=== PATIENT | female | born 1995 | race African-American/Black ===

== ENCOUNTER 2017-04-21 07:25 | Emergency (ER) | payer SELFPAY ==
[~2017-04-21] VITALS: Ht 165.1 cm; Wt 50.0 kg
[~2017-04-21 07:25] MED LIST: POLY10O EACH EYE
[2017-04-21 07:27] VITALS: BP 112/60; PULSE 70; RESP 14; TEMP 98.1; O2SAT 100
[2017-04-21] MEDS ORDERED: TRIA.1%T TOPICAL (08:17)
--- NOTE | 2017-04-21 08:18 | PD ---
HPI . 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 She states that for someone sanitary napkin at work because she started her period. She subsequently developed irritation. She denies any other symptoms. She states that this is her normal menstrual cycle. She denies any pelvic pain. She denies any dyspareunia or discharge. She denies any urinary tract symptoms. She has not tried anything for the rash. She reports no exacerbating or relieving factors. She describes her discomfort as a hot, burning sensation which she rates as 5/10. PFSH Past Medical History ADHD: No Cancer: No Cardiovascular Problems: No Developmental Delay: No Diabetes: No Immunizations Current: Yes Migraines: No Seizures: No Thyroid Disease: No Ulcer: No ?: Not : 0 Past Surgical History Other Surgery: No Social History Alcohol Use: No Tobacco Use: No Substance Use: No Allergies-Medications (Allergen,Severity, Reaction): Coded Allergies: [place] (Verified Allergy, Severe, MOUTH BREAKS OUT, HIVES, 10/06/16) Reported Meds & Prescriptions Reported Meds & Active Scripts Active Triamcinolone Topical (Triamcinolone Acetonide) 0.1% Cream 1 Applic TOPICAL BID 10 Days Polytrim Opth Drops (Polymyxin/Trimethoprim Sulfate) 10,000-0.1 Unit/Ml-% Soln 1 Drop EACH EYE Q6HR 7 Days Review of Systems Except as stated in HPI: all other systems reviewed are Neg General / Constitutional: No: Fever, Chills Gastrointestinal: No: Nausea, Vomiting, Diarrhea, Abdominal Pain Genitourinary: Positive: Vaginal Bleeding, No: Urgency, Frequency, Dysuria, Pelvic Pain, Dyspareunia, Discharge, Menorrhagia, Metorrhagia Physical Exam Narrative GENERAL: Awake and alert and in no acute distress. SKIN: Warm and dry. HEAD: Atraumatic. Normocephalic. EYES: Pupils equal and round. NECK: Trachea midline. CARDIOVASCULAR: Regular rate and rhythm. RESPIRATORY: No accessory muscle use. : She has a raised, scaly rash to the external genitalia. Speculum and bimanual exams are benign. MUSCULOSKELETAL: No obvious deformities. No edema. NEUROLOGICAL: Awake and alert. No obvious cranial nerve deficits. Motor grossly within normal limits. Normal speech. PSYCHIATRIC: Appropriate mood and affect; insight and judgment normal. Data Data Last Documented VS Vital Signs Date Time Temp Pulse Resp B/P Pulse Ox O2 Delivery O2 Flow Rate FiO2 04/21/17 07:27 98.1 70 14 112/60 100 Orders Gc And Chlamydia Pcr (04/21/17 07:33) Wet Prep Profile (04/21/17 07:33) Urinalysis - C+S If Indicated (04/21/17 07:33) Ed Urine Pregnancytest Poc (04/21/17 07:33) Urine Culture (04/21/17 07:50) Ceftriaxone Inj (Rocephin Inj) (04/21/17 08:45) Lidocaine 1% Inj (50 Ml) (Xylocaine 1% I (04/21/17 08:45) Labs Laboratory Tests Test 04/21/17 04/21/17 07:50 08:00 Urine Color YELLOW Urine Turbidity HAZY Urine pH 5.5 Urine Specific Todd 1.009 Urine Protein NEG mg/dL Urine Glucose (UA) NEG mg/dL Urine Ketones NEG mg/dL Urine Occult Blood LARGE Urine Nitrite NEG Urine Bilirubin NEG Urine Urobilinogen LESS THAN 2.0 MG/DL Urine Leukocyte Esterase LARGE Urine RBC 42 /hpf Urine WBC 12 /hpf Urine WBC Clumps RARE Urine Squamous Epithelial 7 /hpf Cells Urine Bacteria FEW /hpf Urine Mucus FEW /lpf Urine Trichomonas OCC Microscopic Urinalysis Comment CULTURE INDICATED Clue Cells (Wet Prep) PRESENT Vaginal Trichomonas (Wet Prep) PRESENT Vaginal Yeast (Wet Prep) NONE SEEN MDM Medical Decision Making Medical Screen Exam Complete: Yes Emergency Medical Condition: Yes Differential Diagnosis The differential diagnosis of the skin rash includes but is not limited to allergic urticaria, scabies, insect bites, contact dermatitis Narrative Course Patient presents with irritation of the external genitalia. On exam, she has a contact dermatitis to the external genitalia. She will be treated with triamcinolone. This patient's urinalysis shows 12 white cells, white blood cell clumps, few bacteria, large leukocyte esterase. Her wet prep shows both clue cells and Trichomonas. Given these findings, the patient will be treated for all STDs. Diagnosis Primary Impression: Contact dermatitis Qualified Code: L24.89 - Irritant contact dermatitis due to other agents Additional Impressions: Trichomonas vaginitis Bacterial vaginosis Patient Instructions: Bacterial Vaginosis (DC), Contact Dermatitis (DC), General Instructions, Trichomoniasis (DC) Additional Instructions: Use the triamcinolone two-year external genitalia twice daily. I would also suggest using a lotion. Med/Other Pt SpecificInfo: Prescription(s) given Scripts Metronidazole (Flagyl)500 Mg [id number] Mg PO BID 7 Days Ref 0 Prov:Mariel Espinoza MD 04/21/17 Doxycycline Hyclate 100 Mg [id number] Mg PO BID #20 CAP Ref 0 Prov:Mariel Espinoza MD 04/21/17 Triamcinolone Topical 0.1% Cream1 Applic TOPICAL BID 10 Days Ref 0 Prov:Mariel Espinoza MD 04/21/17 Disposition: 01 DISCHARGE HOME Condition: Stable Mariel Espinoza MD April 21, 2017 08:18
[2017-04-21 08:25] LABS: BACTERIA, URINE FEW /hpf; BLOOD, URINE LARGE (NEG); COMMENT (UR) CULTURE INDICATED; CULTURE IF INDICATED CULTURE INDICATED; GLUCOSE,URINE NEG (NEG); KETONE, URINE NEG (NEG); MUCUS URINE FEW /lpf (OCC); NITRITE,URINE NEG (NEG); PH, URINE 5.5 (5.0-8.5); SQUAMOUS EPITHELIAL CELL URINE 7 /hpf (0-5); URINE COLOR YELLOW (YELLW/STRAW)
[2017-04-21] MEDS ORDERED: DOXY100C PO (08:34)
[2017-04-21] MEDS ORDERED: METR-1 PO (08:34)
[2017-04-21] MEDS ORDERED: cefTRIAXone 250 MG VIAL IM ONE (08:45)
[2017-04-21] MEDS ORDERED: LIDOCAINE HCL 1% 50 ML VIAL XX ONE (08:45)
[2017-04-21 13:13] LABS: CHLAMYDIA PCR NOT DETECTED (NOT DETECT); NEISSERIA PCR NOT DETECTED (NOT DETECT)
== END 2017-04-21 09:34 | disposition home or self-care (01) ==
LOC: NEPE 07:25
DX: L24.89 Irritant contact dermatitis due to other agents (principal); A59.01 Trichomonal vulvovaginitis; N76.0 Acute vaginitis; B96.89 Other specified bacterial agents as the cause of diseases classified elsewhere
CPT/HCPCS: 81001; 84703; 87086; 87210; 87491; 87591; 96372; 99284; J0696

== ENCOUNTER 2018-01-23 11:33 | Emergency (ER) | payer SELFPAY ==
[~2018-01-23] VITALS: Ht 162.6 cm; Wt 47.5 kg
[~2018-01-23 11:33] MED LIST changes: +DOXY100C PO; +METR-1 PO; +TRIA.1%T TOPICAL
[2018-01-23 11:39] VITALS: BP 112/70; PULSE 71; RESP 18; TEMP 97.8; O2SAT 100
[2018-01-23 12:48] LABS: AUTOMATED NEUTROPHIL # 1.4 TH/MM3 (1.8-7.7); BASOPHIL % 1.2 % (0.0-2.0); EOSINOPHIL # 0.1 TH/MM3 (0-0.4); EOSINOPHIL % 1.6 % (0.0-4.0); HEMATOCRIT 42.7 % (35.0-46.0); HEMOGLOBIN 14.7 GM/DL (11.6-15.3); LYMPH % 46.5 % (9.0-44.0); LYMPHOCYTE # 1.5 TH/MM3 (1.0-4.8); MEAN CELL VOLUME 86.5 FL (80.0-100.0); MEAN CORPUSCULAR HEMOGLOBIN 29.9 PG (27.0-34.0); MEAN CORPUSCULAR HGB CONC 34.5 % (32.0-36.0); MEAN PLATELET VOLUME 8.2 FL (7.0-11.0); MONO % 5.8 % (0.0-8.0); MONOCYTE # 0.2 TH/MM3 (0-0.9); NEUT % 44.9 % (16.0-70.0); PLATELET COUNT 267 TH/MM3 (150-450); RED BLOOD COUNT 4.93 MIL/MM3 (4.00-5.30); WHITE BLOOD COUNT 3.2 TH/MM3 (4.0-11.0)
[2018-01-23 13:04] LABS: BILIRUBIN, URINE NEG (NEG); BLOOD, URINE NEG (NEG); GLUCOSE,URINE NEG (NEG); KETONE, URINE NEG (NEG); MUCUS URINE MANY /lpf (OCC); NITRITE,URINE NEG (NEG); SQUAMOUS EPITHELIAL CELL URINE 12 /hpf (0-5); URINE COLOR YELLOW (YELLW/STRAW); URINE LEUKOCYTE ESTERASE TRACE (NEG)
--- NOTE | 2018-01-23 13:13 | PD ---
HPI Chief Complaint: GI Complaint Time Seen by Provider: 13:13 Travel History International Travel<30 days: No Contact w/Intl Traveler<30days: No Traveled to known affect area: No History of Present Illness HPI 22-year-old -[place] female presents emergency department with several day history of GI symptoms. Patient states Saturday night she developed diarrhea , which she blamed on some chicken that she ate. She states he then felt feverish and unwell through Saturday. She states she felt improved Saturday, a chicken again, and then developed nausea and vomiting. Patient continues to have nausea and vomiting this morning with diarrhea. She states the last time she had nausea and vomiting was around 11 AM this morning. She states since arriving here in the emergency department and waiting room she has felt improved. Currently patient does not feel nauseous, and has no abdominal pain. Labs and urinalysis and urine were performed in triage. She is allergic to strawberries. PFSH Past Medical History ADHD: No Cancer: No Cardiovascular Problems: No Developmental Delay: No Diabetes: No Diminished Hearing: No Immunizations Current: Yes Migraines: No Seizures: No Thyroid Disease: No Ulcer: No : 0 Past Surgical History Other Surgery: No Social History Alcohol Use: No Tobacco Use: No Substance Use: No Allergies-Medications (Allergen,Severity, Reaction): Coded Allergies: strawberry (Unverified Allergy, Severe, MOUTH BREAKS OUT, HIVES, 01/23/18) Reported Meds & Prescriptions Reported Meds & Active Scripts Active Flagyl (Metronidazole) 500 Mg Tab 500 Mg PO BID 7 Days Flagyl (Metronidazole) 500 Mg Tab 500 Mg PO BID 7 Days Doxycycline Hyclate 100 Mg Cap 100 Mg PO BID Triamcinolone Topical (Triamcinolone Acetonide) 0.1% Cream 1 Applic TOPICAL BID 10 Days Polytrim Opth Drops (Polymyxin/Trimethoprim Sulfate) 10,000-0.1 Unit/Ml-% Soln 1 Drop EACH EYE Q6HR 7 Days Review of Systems Except as stated in HPI: all other systems reviewed are Neg General / Constitutional: Positive: Fever (2 days ago.), No: Chills Eyes: No: Visual changes HENT: No: Headaches Cardiovascular: No: Chest Pain or Discomfort Respiratory: No: Shortness of Breath Gastrointestinal: Positive: Nausea, Vomiting, Diarrhea, Abdominal Pain (See history of present illness.) Genitourinary: No: Dysuria Musculoskeletal: No: Pain Skin: No Rash Neurologic: No: Weakness Psychiatric: No: Depression Endocrine: No: Polydipsia Hematologic/Lymphatic: No: Easy Bruising Physical Exam Narrative GENERAL: Patient appears in no acute distress. She is using her phone during my exam. SKIN: Warm and dry. Normal color. Normal turgor. No diaphoresis. HEAD: Atraumatic. Normocephalic. EYES: Pupils equal and round. No scleral icterus. No injection or drainage. ENT: No nasal bleeding or discharge. Mucous membranes pink and moist. Pharynx is clear. Airways patent. NECK: Trachea midline. Supple. CARDIOVASCULAR: Regular rate and rhythm. RESPIRATORY: No accessory muscle use. Clear to auscultation. Breath sounds equal bilaterally. GASTROINTESTINAL: Abdomen soft, non-tender, nondistended. Hepatic and splenic margins not palpable. MUSCULOSKELETAL: Extremities without clubbing, cyanosis, or edema. No obvious deformities. NEUROLOGICAL: Awake and alert. No obvious cranial nerve deficits. Motor grossly within normal limits. Five out of 5 muscle strength in the arms and legs. Normal speech. PSYCHIATRIC: Appropriate mood and affect; insight and judgment normal. Data Data Last Documented VS Vital Signs Date Time Temp Pulse Resp B/P (MAP) Pulse Ox O2 Delivery O2 Flow Rate FiO2 01/23/18 11:41 18 01/23/18 11:39 97.8 71 112/70 (84) 100 Orders Orders Complete Blood Count With Diff (01/23/18 11:49) Comprehensive Metabolic Panel (01/23/18 11:49) Urinalysis - C+S If Indicated (01/23/18 11:49) Ed Urine Pregnancytest Poc (01/23/18 11:49) Labs Laboratory Tests Test 01/23/18 12:07 White Blood Count 3.2 TH/MM3 Red Blood Count 4.93 MIL/MM3 Hemoglobin 14.7 GM/DL Hematocrit 42.7 % Mean Corpuscular Volume 86.5 FL Mean Corpuscular Hemoglobin 29.9 PG Mean Corpuscular Hemoglobin Concent 34.5 % Red Cell Distribution Width 13.0 % Platelet Count 267 TH/MM3 Mean Platelet Volume 8.2 FL Neutrophils (%) (Auto) 44.9 % Lymphocytes (%) (Auto) 46.5 % Monocytes (%) (Auto) 5.8 % Eosinophils (%) (Auto) 1.6 % Basophils (%) (Auto) 1.2 % Neutrophils # (Auto) 1.4 TH/MM3 Lymphocytes # (Auto) 1.5 TH/MM3 Monocytes # (Auto) 0.2 TH/MM3 Eosinophils # (Auto) 0.1 TH/MM3 Basophils # (Auto) 0.0 TH/MM3 CBC Comment DIFF FINAL Differential Comment Urine Color YELLOW Urine Turbidity HAZY Urine pH 6.0 Urine Specific H[place] 1.028 Urine Protein 30 mg/dL Urine Glucose (UA) NEG mg/dL Urine Ketones NEG mg/dL Urine Occult Blood NEG Urine Nitrite NEG Urine Bilirubin NEG Urine Urobilinogen LESS THAN 2.0 MG/DL Urine Leukocyte Esterase TRACE Urine RBC LESS THAN 1 /hpf Urine WBC 3 /hpf Urine Squamous Epithelial Cells 12 /hpf Urine Mucus MANY /lpf Microscopic Urinalysis Comment CULT NOT INDICATED Blood Urea Nitrogen 10 MG/DL Creatinine 0.73 MG/DL Random Glucose 79 MG/DL Total Protein 8.4 GM/DL Albumin 4.0 GM/DL Calcium Level 9.1 MG/DL Alkaline Phosphatase 64 U/L Aspartate Amino Transf (AST/SGOT) 17 U/L Alanine Aminotransferase (ALT/SGPT) 14 U/L Total Bilirubin 0.6 MG/DL Sodium Level 139 MEQ/L Potassium Level 4.1 MEQ/L Chloride Level 105 MEQ/L Carbon Dioxide Level 29.7 MEQ/L Anion Gap 4 MEQ/L Estimat Glomerular Filtration Rate 121 ML/MIN [facility] Medical Decision Making Medical Screen Exam Complete: Yes Emergency Medical Condition: Yes Medical Record Reviewed: Yes Differential Diagnosis Gastroenteritis. Food poisoning. Nausea vomiting. Diarrhea. Fever. Narrative Course Patient is medically stable at time of exam. Urine is negative. Urinalysis is unremarkable. CBC is unremarkable. CMP is unremarkable. Patient is felt to have viral gastroenteritis which is resolving. Patient will be treated outpatient with Zofran 4 mg every 6 hours as needed nausea. Patient is also given Bentyl 10 mg every 6 hours as needed abdominal cramping. Patient is to rest, push fluids, and return if symptoms worsen. Diagnosis Primary Impression: Gastroenteritis Patient Instructions: Acute Diarrhea (ED), Acute Nausea and Vomiting (ED), General Instructions Departure Forms: Work Release Enter return to work date: Jan 24, 2018 Additional Instructions: Urine is negative. Urinalysis is unremarkable. CBC is unremarkable. CMP is unremarkable. Patient is felt to have viral gastroenteritis which is resolving. Patient will be treated outpatient with Zofran 4 mg every 6 hours as needed nausea. Patient is also given Bentyl 10 mg every 6 hours as needed abdominal cramping. Patient is to rest, push fluids, and return if symptoms worsen. Med/Other Pt SpecificInfo: Prescription(s) given Disposition: 01 DISCHARGE HOME Condition: Stable Nahum Light Jan 23, 2018 13:13
[2018-01-23 13:22] LABS: ALT (GPT) 14 U/L (10-53); AST (GOT) 17 U/L (15-37); BICARBONATE 29.7 MEQ/L (21.0-32.0); BLOOD UREA NITROGEN 10 MG/DL (7-18); CALCIUM 9.1 MG/DL (8.5-10.1); CHLORIDE 105 MEQ/L (98-107); CREATININE 0.73 MG/DL (0.50-1.00); GLOMERULAR FILTRATION RATE 121 ML/MIN (>89); GLUCOSE,RANDOM 79 MG/DL (74-106); SODIUM (NA) 139 MEQ/L (136-145)
[2018-01-23 13:24] LABS: ALKALINE PHOSPHATASE 64 U/L (45-117); TOTAL BILIRUBIN ADULT 0.6 MG/DL (0.2-1.0); TOTAL PROTEIN 8.4 GM/DL (6.4-8.2)
[2018-01-23] MEDS ORDERED: ZOFR4TAB PO (13:31)
[2018-01-23] MEDS ORDERED: DICY10 PO (13:31)
== END 2018-01-23 14:03 | disposition home or self-care (01) ==
LOC: NEPD 11:33
DX: K52.9 Noninfective gastroenteritis and colitis, unspecified (principal)
CPT/HCPCS: 80053; 81001; 84703; 85025; 99283

== ENCOUNTER 2018-02-08 07:39 | Emergency (ER) | payer OTHER ==
[~2018-02-08] VITALS: Ht 162.6 cm; Wt 50.0 kg
[~2018-02-08 07:39] MED LIST changes: +DICY10 PO; +ZOFR4TAB PO
[2018-02-08 07:42] VITALS: BP 118/59; PULSE 76; RESP 18; TEMP 98.6; O2SAT 100
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
== END 2018-02-08 09:28 | disposition home or self-care (01) ==
LOC: NEPD 07:39
DX: R68.84 Jaw pain (principal); V49.50XA Passenger injured in collision with unspecified motor vehicles in traffic accident, initial encounter; Z79.899 Other long term (current) drug therapy
CPT/HCPCS: 70110; 70486; 71045

== ENCOUNTER 2018-04-28 13:44 | Emergency (ER) | payer OTHER ==
[~2018-04-28] VITALS: Ht 152.4 cm; Wt 47.0 kg
[2018-04-28 13:56] VITALS: BP 116/54; PULSE 82; RESP 16; TEMP 99.1; O2SAT 99
== END 2018-04-28 15:30 | disposition left against medical advice (07) ==
LOC: NED 13:44
DX: R50.9 Fever, unspecified (principal)
CPT/HCPCS: 99281